=== PATIENT | female | born 1990 | race Caucasian/White ===

== ENCOUNTER 2016-04-30 22:39 | Emergency (ER) | payer OTHER ==
[~2016-04-30] VITALS: Ht 170.2 cm; Wt 95.0 kg
[2016-04-30 22:43] VITALS: BP 138/91; PULSE 89; RESP 20; O2SAT 97
--- NOTE | 2016-05-01 00:55 | ED.REPORT ---
HPI-General Illness Date of Service Apr 30, 2016 ED Provider: Carlton Caldera MD Ms. Ct Cuellar is a very pleasant 25-year-old female past medical history significant for asthma and partial pneumothorax after episode of bronchitis in mid-March last month was at the [facility] emergency department with 2- day history of sharp muscle spasms around near her left scapula is worsened by deep inhalation, cough and movement and body positioning, accompanied with one month history of numbness in the morning and one day history of very weak left upper extremity. She denies shortness of breath, chest pain, syncope, palpitations, fever, chills, nausea, vomiting, constipation, diarrhea, abdominal pain. Nursing Notes Stated Complaint: L SIDE PAIN Chief Complaint: Back Pain or Injury Nursing Notes Reviewed: Yes Allergies: Coded Allergies: Penicillins (Verified Allergy, Severe, 10/23/11) codeine (Verified Allergy, Severe, 10/23/11) amoxicillin (Verified Allergy, Mild, Hives, 04/30/16) Scheduled PRN Cyclobenzaprine (Cyclobenzaprine) 10 Mg Tablet 10 MG PO TID PRN PRN Spasm General Time Seen by MD: 12:00 Chief Complaint Back pain, Other Sudden in Onset?: Yes Review of Systems A comprehensive review of systems was conducted with the patient and found to be negative except as above in the History of Present Illness Full Review of Systems Musculoskeletal: Reports: Back pain, Thoracic pain (on the left upper scapula) Physical Exam General: Young lady lying in bed in no acute distress until deep inspiration, well-developed, well-nourished, appropriately interactive HEENT: Normocephalic, atraumatic. External ears without defect. Pupils equal, round, and reactive to light and accommodation. Anicteric sclerae, moist conjunctivae, and no lid lag. Oropharynx free of erythema and cobble stoning with moist mucosa. Neck: Supple with full range of motion. No jugular venous distension. No bruits. No lymphadenopathy or thyromegaly. Cardiovascular: Regular rate and rhythm with no murmurs, rubs, or gallops appreciated Pulmonary: Clear to auscultation bilaterally with no crackles, wheezes, or rhonchi. Normal respiratory effort with no use of accessory muscles. Abdomen: Bowel tones present. Soft, nontender, nondistended. No hepatosplenomegaly or masses appreciated. Extremities: No clubbing, cyanosis, edema, or lymphadenopathy appreciated. Skin: Normal temperature, turgor, and texture; no rash, ulcers, or subcutaneous nodules appreciated. Musculoskeletal: Tender to palpation on the left paraspinal, left suprascapular , and left infrascapular regions. Neurological: Cranial nerves grossly intact. muscle strength decreased on left upper extremity, normal tone, and bulk. Reflexes, coordination, and sensory function within normal limits. No known gait impairment. Psychiatric: Normal mood and affect. Alert and oriented to person, place, and time. Vital Signs Vital Signs Date Time Temp Pulse Resp B/P Pulse Ox O2 Delivery O2 Flow Rate FiO2 05/01/16 01:40 36.8 78 16 112/74 97 Room Air 04/30/16 22:43 36.4 89 20 138/91 97 Room Air Interpretation & Diagnostics Lab Results Interpretation Test 05/01/16 00:59 Hold Urine Received (Received) Re-Eval/Medical Decision Med Decision/Clinical Course Ms. Ct Cuellar has a past medical history for subjective partial pneumothorax from coughing and mid-March last month after bronchitis, and asthma exacerbation, presents today for severe left scapular muscle spasms and weakness of her left arm. Differential diagnosis includes: Acute sudden scapular muscle spasm, intercostal strain, trigger point, pneumothorax, rubs or gallops syndrome, degenerative disc disease with nerve impingement, asthma exacerbation. This is most likely an acute muscle spasm from trigger point and/or asthma related intercostal strain. With her history of possible pneumothorax on the left side is prudent to obtain an x-ray today, test and treat with Flexeril 10 mg. Discharge & Departure Primary Impression: Strain of thoracic region Encounter type: initial encounter Qualified Code: S29.019A - Strain of muscle and tendon of unspecified wall of thorax, initial encounter Disposition: Home Discharge Condition All VS Reviewed: Yes Condition: Stable Additional Instructions: During you visit to [facility] Emergency Department we obtained a chest x- ray and a test. A preliminary read of her chest x-ray showed no acute abnormalities, a radiologist read it tomorrow during normal operating hours and if anything is abnormal we will call you with the results. You are not pertinent. We will send you home with - Five-day course of muscle relaxers, cyclobenzaprine 10 mg by mouth intake up to 3 times a day as needed. Do not hesitate to call emergency services or your primary care physician if you experience any of the following. -High unrelenting fevers. -Uncontrolled vomiting. -Severe hypertension. -Syncope or loss of consciousness. -Chest pain or severe shortness of breath. -Worsening signs and symptoms of neurologic impairment on the left arm. -If these symptoms do not resolve in the next 3 days. Treat with muscle relaxers, ice for 20 minutes at a time and the rest the next 2 -3 days. After muscles relaxed and the spasms are no longer active you can then proceed to heating pad and several days later massage. For further treatment of muscle spasms and general well-being I recommend Dr. Mary Perdomo with [facility]. Follow up with your primary care physician in 1-2 weeks time following your emergency department visit for medication checks and general well-being. Referrals: Bria Coreas PA-C (PCP) Attending Statement The patient was seen and examined together with Dr. Florin Oleayr and I agree with the history, exam and plan as outlined in the note above. copies to: Bria Coreas PA-C, COREY P DO May 01, 2016 00:00 Carlton Caldera MD May 01, 2016 13:17
[2016-05-01] MEDS ORDERED: CYCL10TA9 PO (01:33)
[2016-05-01 01:40] VITALS: BP 112/74; PULSE 78; RESP 16; O2SAT 97
--- NOTE | 2016-05-01 09:10 | DRSVH ---
PROCEDURE: X-RAY CHEST ONE VIEW, PORTABLE ([id number]) INDICATIONS: Left scapular pain, shortness of breath TECHNIQUE: One view of the chest was acquired. COMPARISON: None. FINDINGS: Surgical changes and devices: None. Lungs and pleura: No pleural effusions or pneumothorax. Lungs are clear. Mediastinum: Mediastinal contours appear normal. Heart size is normal. Bones and chest wall: No suspicious bony lesions. Overlying soft tissues appear unremarkable. IMPRESSION: No acute cardiopulmonary disease. Dictated by: [facility] Interpreted: Hilda Malave MD on 05/01/2016 at 9:09 Transcribed by: GENE on 05/01/2016 at 9:09 Approved by: Hilda Malave MD, PhD on 05/01/2016 at 16:44
== END 2016-05-01 01:38 | disposition home or self-care (01) ==
LOC: SED 22:39
DX: S29.002A Unspecified injury of muscle and tendon of back wall of thorax, initial encounter (principal); X50.9XXA Other and unspecified overexertion or strenuous movements or postures, initial encounter; Y93.89 Activity, other specified; Y92.89 Other specified places as the place of occurrence of the external cause; Y99.8 Other external cause status; R05 Cough; J45.909 Unspecified asthma, uncomplicated; Z88.0 Allergy status to penicillin; Z88.1 Allergy status to other antibiotic agents; Z88.5 Allergy status to narcotic agent